=== PATIENT | male | born 1990 | race Caucasian/White ===

== ENCOUNTER 2016-07-31 15:44 | Emergency (ER) | payer BC, OTHER ==
[2016-07-31 16:13] VITALS: BP 123/74
--- NOTE | 2016-07-31 16:16 | UC ---
Throat Pain/Nasal Jaxon HPI - HPI Summary HPI Summary: ONE WEEK COUGH SORE THROAT SINUS PRESSURE. INTERMITTENT FEVER. TODAY SINUS PRESSURE IS WORSENING. - History of Current Complaint Chief Complaint: UCGeneralIllness Stated Complaint: SINUS COMPLAINT Time Seen by Provider: 07/31/16 15:58 Hx Obtained From: Patient Onset/Duration: Gradual Onset, Lasting Weeks, Still Present Severity: Mild Pain Intensity: 3 Pain Scale Used: 0-10 Numeric Cough: Productive Associated Signs & Symptoms: Positive: Hoarseness, Sinus Discomfort, Nasal Discharge. Negative: Fever - Epiglottits Risk Factors Epiglottis Risk Factors: Negative - Allergies/Home Medications Allergies/Adverse Reactions: Allergies Allergy/AdvReac Type Severity Reaction Status Date / Time No Known Allergies Allergy Verified 07/31/16 15:53 Home Medications: Home Medications Chlorpheniramine-Dm [Cough & Cold] 1 tab PO Q6H PRN 07/31/16 [History Confirmed 07/31/16] Naproxen TAB* [Naprosyn 250 mg TAB*] 500 mg PO BID PRN 07/31/16 [History Confirmed 07/31/16] PMH/Surg Hx/FS Hx/Imm Hx Previously Healthy: Yes Endocrine History Of: Denies: Diabetes Cardiovascular History Of: Denies: Cardiac Disorders Respiratory History Of: Denies: Asthma - Surgical History Surgical History: None - Family History Known Family History: Positive: None Negative: Respiratory Disease - Social History Occupation: Employed Full-time Alcohol Use: Occasionally Substance Use Type: None Smoking Status (MU): Never Smoked Tobacco Review of Systems Constitutional: Fever Skin: Negative Eyes: Negative ENT: Sore Throat, Ear Ache, Nasal Discharge Respiratory: Cough Cardiovascular: Negative Gastrointestinal: Negative Genitourinary: Negative Motor: Negative Neurovascular: Negative Musculoskeletal: Negative Neurological: Negative Psychological: Negative All Other Systems Reviewed And Are Negative: Yes Physical Exam Triage Information Reviewed: Yes Appearance: Well-Appearing, No Pain Distress, Well-Nourished Vital Signs: Initial Vital Signs Temp 98.2 F 07/31/16 15:55 Pulse 83 07/31/16 15:55 Resp 16 07/31/16 15:55 BP 123/74 07/31/16 15:55 Pulse Ox 98 07/31/16 15:55 Vital Signs Reviewed: Yes Eye Exam: Normal ENT: Positive: Hearing grossly normal, Pharynx normal, Nasal congestion, TM bulging, TM dull Dental Exam: Normal Neck exam: Normal Neck: Positive: Supple, Nontender, No Lymphadenopathy Respiratory Exam: Other - COUGH Respiratory: Positive: Chest non-tender, Lungs clear, Normal breath sounds, No respiratory distress, No accessory muscle use Cardiovascular Exam: Normal Cardiovascular: Positive: RRR, No Murmur Abdominal Exam: Normal Abdomen Description: Positive: Nontender, No Organomegaly Musculoskeletal Exam: Normal Musculoskeletal: Positive: Strength Intact, ROM Intact Neurological Exam: Normal Psychological Exam: Normal Skin Exam: Normal Throat Pain/Nasal Course/Dx - Differential Dx/Diagnosis Differential Diagnosis/HQI/PQRI: Pharyngitis, Sinusitis, URI Provider Diagnoses: SINUSITIS Discharge - Discharge Plan Condition: Stable Disposition: HOME Prescriptions: Amoxicillin/Clavulanate TAB* [Augmentin TAB 875*] 875 mg PO BID #20 tab Patient Education Materials: Sinusitis (ED) Referrals: [facility] [Outside] No Primary Care Phys,NOPCP [Primary Care Provider] -
== END 2016-07-31 16:07 | disposition home or self-care (01) ==
LOC: UCCORT 15:44
DX: J32.9 Chronic sinusitis, unspecified (principal)
CPT/HCPCS: 99212; G0463

== ENCOUNTER 2016-09-21 10:14 | Emergency (ER) | payer BC ==
[2016-09-21 10:28] VITALS: BP 123/73
--- NOTE | 2016-09-21 10:37 | UC ---
Lower Extremity/Ankle HPI - HPI Summary HPI Summary: right heel and foot pain for a month---worse in the morning and after resting leg - History of Current Complaint Chief Complaint: UCLowerExtremity Stated Complaint: RIGHT FOOT HEEL PAIN Time Seen by Provider: 09/21/16 10:31 Hx Obtained From: Patient Onset/Duration: Gradual Onset, Lasting Weeks - 4, Still Present, Worse Since - in the morning Severity Initially: Mild Severity Currently: Moderate Pain Intensity: 8 Pain Scale Used: 0-10 Numeric Aggravating Factor(s): Standing, Ambulation, Other - rest Alleviating Factor(s): Nothing Able to Bear Weight: Yes Related History: Other - Allergies/Home Medications Allergies/Adverse Reactions: Allergies Allergy/AdvReac Type Severity Reaction Status Date / Time No Known Allergies Allergy Verified 09/21/16 10:27 Home Medications: Home Medications NK [No Home Medications Reported] 09/21/16 [History Confirmed 09/21/16] PMH/Surg Hx/FS Hx/Imm Hx Previously Healthy: Yes - Surgical History Surgical History: None - Family History Known Family History: Positive: None Negative: Respiratory Disease - Social History Occupation: Employed Full-time Lives: With Family Alcohol Use: Weekly Substance Use Type: None Smoking Status (MU): Never Smoked Tobacco Review of Systems Constitutional: Negative Skin: Negative Eyes: Negative ENT: Negative Respiratory: Negative Cardiovascular: Negative Gastrointestinal: Negative Genitourinary: Negative Motor: Negative Neurovascular: Negative Musculoskeletal: Arthralgia - right heel radiating up plantar surface Neurological: Negative Psychological: Negative All Other Systems Reviewed And Are Negative: Yes Physical Exam Triage Information Reviewed: Yes Appearance: Well-Appearing, No Pain Distress, Well-Nourished Vital Signs: Initial Vital Signs Temp 98.8 F 09/21/16 10:22 Pulse 64 09/21/16 10:22 Resp 16 09/21/16 10:22 BP 123/73 09/21/16 10:22 Pulse Ox 100 09/21/16 10:22 Vital Signs Reviewed: Yes Eye Exam: Normal Eyes: Positive: Conjunctiva Clear ENT Exam: Normal ENT: Positive: Normal ENT inspection, Hearing grossly normal, Pharynx normal, TMs normal. Negative: Nasal congestion, Nasal drainage, Trismus, Muffled/ hoarse voice Dental Exam: Normal Neck exam: Normal Neck: Positive: Supple, Nontender Respiratory Exam: Normal Respiratory: Positive: Chest non-tender, No respiratory distress, No accessory muscle use Cardiovascular Exam: Normal Cardiovascular: Positive: RRR, Pulses Normal, Brisk Capillary Refill Musculoskeletal Exam: Normal Musculoskeletal: Positive: Strength Intact, ROM Intact, No Edema Neurological Exam: Normal Neurological: Positive: Alert, Muscle Tone Normal Psychological Exam: Normal Skin Exam: Normal Lower Extremity Course/Dx - Course Course Of Treatment: ibuprofen, plantar exercise, follow with podiatry as planned October 26 - Differential Dx/Diagnosis Differential Diagnosis/HQI/PQRI: Contusion, Fracture (Closed), Sprain, Strain, Tendonitis Provider Diagnoses: right plantar fascitis Discharge - Discharge Plan Condition: Stable Disposition: HOME Patient Education Materials: Ibuprofen (By mouth), Plantar Fasciitis Exercises (GEN), Plantar Fasciitis (ED) Referrals: Andrey KIDD,Noah Cam [Doctor of Podiatric Medicine] - 10/26/16 (as planned )
== END 2016-09-21 10:48 | disposition home or self-care (01) ==
LOC: UCCORT 10:14
DX: M72.2 Plantar fascial fibromatosis (principal)
CPT/HCPCS: 99211; G0463

== ENCOUNTER 2018-03-20 08:15 | Emergency (ER) | payer BC ==
[2018-03-20 08:34] VITALS: BP 124/76
--- NOTE | 2018-03-20 09:18 | ED ---
Adult Trauma - HPI Summary HPI Summary: 27 yr old male with the complaint of pain over the 8/9 th ribs on left side. He fell two weeks ago when carrying wood. He fell about three feet and landed on the wood he was carrying with his left chest. He denies SOB. He has pain worse with moving, and trying to sit up from a supine position. Pain is moderate. He states that he felt the pain had gotten worse the past couple of days, and he came here due to this. Pain is 5/10. - History of Current Complaint Chief Complaint: UCChestPain Stated Complaint: LT SIDE RIB INJURYx 2 WKS Time Seen by Provider: 03/20/18 08:35 Pain Intensity: 0 - Allergy/Home Medications Allergies/Adverse Reactions: Allergies Allergy/AdvReac Type Severity Reaction Status Date / Time No Known Allergies Allergy Verified 03/20/18 08:31 Home Medications: Home Medications Ibuprofen TAB* [Advil TAB*] 400 mg PO Q6H PRN 03/20/18 [History Confirmed ] PMH/Surg Hx/FS Hx/Imm Hx Previously Healthy: Yes Endocrine/Hematology History: Denies: Hx Diabetes Respiratory History: Denies: Hx Asthma Infectious Disease History: No Infectious Disease History: Denies: Hx of Known/Suspected MRSA, Traveled Outside the [place] in Last 30 Days - Family History Known Family History: Positive: None Negative: Respiratory Disease - Social History Occupation: Employed Full-time Alcohol Use: Occasionally Substance Use Type: Reports: None Smoking Status (MU): Never Smoked Tobacco Review of Systems Constitutional: Negative Positive: Other - chest wall pain All Other Systems Reviewed And Are Negative: Yes Physical Exam Triage Information Reviewed: Yes Vital Signs On Initial Exam: Initial Vitals Temp Pulse Resp BP Pulse Ox 98.3 F 51 14 124/76 100 03/20/18 08:28 03/20/18 08:28 03/20/18 08:28 03/20/18 08:28 03/20/18 08:28 Vital Signs Reviewed: Yes Appearance: Positive: Well-Appearing, No Pain Distress Skin: Positive: Warm, Skin Color Reflects Adequate Perfusion Eyes: Positive: EOMI ENT: Positive: Normal ENT inspection Neck: Positive: Nontender Respiratory/Lung Sounds: Positive: Clear to Auscultation, Breath Sounds Present Cardiovascular: Positive: RRR. Negative: Murmur Abdomen Description: Negative: Distended Musculoskeletal: Positive: Strength/ROM Intact Neurological: Positive: Sensory/Motor Intact, Alert, Oriented to Person Place, Time, CN Intact II-III Psychiatric: Positive: Normal - Jack Coma Scale Best Eye Response: 4 - Spontaneous Best Motor Response: 6 - Obeys Commands Best Verbal Response: 5 - Oriented Coma Scale Total: 15 Diagnostics - Vital Signs Vital Signs Temp Pulse Resp BP Pulse Ox 03/20/18 08:28 98.3 F 51 14 124/76 100 - Laboratory Lab Results: Lab Results 03/20/18 Range/Units 08:52 POC Urine Color Yellow POC Urine Clarity Clear POC Urine pH 6.0 (5-9) POC Ur Specif Lysite 1.015 (1.010-1.030) POC Urine Protein Negative (Negative) POC Ur Glucose (UA) Negative (Negative) POC Urine Ketones Negative (Negative) POC Urine Blood Negative (Negative) POC Urine Nitrite Negative (Negative) POC Urine Bilirubin Negative (Negative) POC Urine Urobilinogen 0.2 (Negative) POC U Leukocyte Esteras Negative (Negative) Lab Statement: Any lab studies that have been ordered have been reviewed, and results considered in the medical decision making process. - Radiology left ribs, and chest. Radiology Interpretation Completed By: Radiologist - non displaced fx ribs 8/9 left side - CT abd/pelvis CT Interpretation Completed By: Radiologist - No visceral injury. NAD. Adult Trauma Course/Dx - Course Course Of Treatment: 27 yr old with non displaced rib fractures. - Diagnoses Provider Diagnoses: Left rib fracture, Closed traumatic nondisplaced fracture of rib Discharge - Sign-Out/Discharge Documenting (check all that apply): Patient Departure All imaging exams completed and their final reports reviewed: No Studies - Discharge Plan Condition: Good Disposition: HOME Patient Education Materials: Rib Fracture (ED) Referrals: No Primary Care Phys,NOPCP [Primary Care Provider] - [facility] [Outside] - 4 Days - Billing Disposition and Condition Condition: GOOD Disposition: Home
--- NOTE | 2018-03-20 11:16 | ED ---
Course/Dx - Course Course Of Treatment: 27 yr old with non displaced rib fractures. - Diagnoses Provider Diagnoses: Left rib fracture, Closed traumatic nondisplaced fracture of rib Discharge - Sign-Out/Discharge Documenting (check all that apply): Patient Departure All imaging exams completed and their final reports reviewed: Yes - Discharge Plan Condition: Good Disposition: HOME Patient Education Materials: Rib Fracture (ED) Referrals: [facility] [Outside] - 4 Days No Primary Care Phys,NOPCP [Primary Care Provider] - - Billing Disposition and Condition Condition: GOOD Disposition: Home
== END 2018-03-20 10:44 | disposition home or self-care (01) ==
LOC: UCCORT 08:15
DX: S22.32XA Fracture of one rib, left side, initial encounter for closed fracture (principal); W19.XXXA Unspecified fall, initial encounter; Y93.01 Activity, walking, marching and hiking; Y92.9 Unspecified place or not applicable
CPT/HCPCS: 74176; 81003; 99211; G0463

== ENCOUNTER 2019-05-21 09:17 | Emergency (ER) | payer BC ==
[2019-05-21 11:35] VITALS: BP 108/65
--- NOTE | 2019-05-21 11:57 | UC ---
FLU HPI - HPI Summary HPI Summary: 29 yo with cough, congestion, myalgias, onset x 4 days ago. His is 4 months ; he would like flu testing. - History of Current Complaint Chief Complaint: UCGeneralIllness Stated Complaint: RUNNY NOSE THROAT HEAD Time Seen by Provider: 05/21/19 11:50 Hx Obtained From: Patient Onset/Duration: Gradual Onset Severity Currently: Mild Severity Initially: Moderate Pain Intensity: 0 Associated Signs & Symptoms: Positive: Myalgia, Cough. Negative: Fever, Sore Throat, Headache - Risk Factors Influenza Risk Factors: Negative - Allergy/Home Medications Allergies/Adverse Reactions: Allergies Allergy/AdvReac Type Severity Reaction Status Date / Time No Known Allergies Allergy Verified 05/21/19 11:35 Home Medications: Home Medications Ibuprofen/Phenylephrine HCl [Sudafed PE Head Congestn-Pain] 1 each PO DAILY PRN 05/21/19 [History Confirmed 05/21/19] PMH/Surg Hx/FS Hx/Imm Hx Previously Healthy: Yes - Surgical History Surgical History: None - Family History Known Family History: Positive: None - parents alive and well, no chronic illnesses. Negative: Respiratory Disease - Social History Occupation: Employed Full-time Lives: With Family Alcohol Use: Occasionally Substance Use Type: None Smoking Status (MU): Never Smoked Tobacco Review of Systems All Other Systems Reviewed And Are Negative: Yes Constitutional: Positive: Fatigue Skin: Positive: Negative Eyes: Positive: Negative ENT: Positive: Nasal Discharge, Sinus Congestion Respiratory: Positive: Cough. Negative: Shortness Of Breath Cardiovascular: Negative: Chest Pain Gastrointestinal: Positive: Negative Genitourinary: Positive: Negative Motor: Positive: Negative Neurovascular: Positive: Negative Musculoskeletal: Positive: Negative Neurological/Mental Status: Positive: Negative Psychological: Positive: Negative Is Patient Immunocompromised?: No Physical Exam Triage Information Reviewed: Yes Appearance: Well-Appearing, No Pain Distress Vital Signs: Initial Vital Signs Temp 98.0 F 05/21/19 11:31 Pulse 68 05/21/19 11:31 Resp 17 05/21/19 11:31 BP 108/65 05/21/19 11:31 Pulse Ox 99 05/21/19 11:31 Eyes: Positive: Conjunctiva Clear ENT: Positive: Pharynx normal, TMs normal Neck: Positive: Supple, Nontender, No Lymphadenopathy Respiratory: Positive: Lungs clear, Normal breath sounds Cardiovascular: Positive: RRR, No Murmur Musculoskeletal Exam: Normal Neurological Exam: Normal Psychological Exam: Normal Skin Exam: Normal Diagnostics - Laboratory Lab Results: rapid flu A positive. Flu Course/Dx - Course Course Of Treatment: symptomatic treatment: he is afebrile and improving. - Differential Dx/Diagnosis Differential Diagnosis/HQI/PQRI: Influenza, Upper Respiratory Infection Provider Diagnosis: Influenza A Discharge ED - Sign-Out/Discharge Documenting (check all that apply): Patient Departure All imaging exams completed and their final reports reviewed: No Studies - Discharge Plan Condition: Stable Disposition: HOME Patient Education Materials: Influenza (ED) Referrals: No Primary Care Phys,NOPCP [Primary Care Provider] - Additional Instructions: You have influenza A, and appear to be improving. Continue symptomatic treatment. Your can notify her men's custom hair piece consultant regarding the contact for consideration of preventive Tamiflu. - Billing Disposition and Condition Condition: STABLE Disposition: Home
[2019-05-21 12:00] LABS: Influenza A Molecular POSITIVE (Negative)
== END 2019-05-21 12:14 | disposition home or self-care (01) ==
LOC: UCCORT 09:17
DX: J10.1 Influenza due to other identified influenza virus with other respiratory manifestations (principal)
CPT/HCPCS: 99211; G0463